=== PATIENT | female | born 2005 | race Asian ===

== ENCOUNTER 2024-06-18 10:38 | Inpatient (IN) | payer MEDICAID, SELFPAY ==
--- NOTE | ~2024-06-18 | CT_ITS ---
EXAMINATION: CT ABDOMEN PELVIS WITH IV CONTRAST CLINICAL INFORMATION: RLQ pain, R/O appendicitis COMPARISON: None. TECHNIQUE: IV contrast enhanced CT of the abdomen and pelvis. Intravenous Contrast: Omnipaque [address] examination was performed using dose optimization techniques as appropriate, variously including the following: *Automated exposure control *Adjustment of mA and/or kV according to patient size (this includes techniques or standardized protocols for targeted exams where dose is matched to indication/reason for exam; i.e. extremities or head) *Use of iterative reconstruction technique DLP: 472 mGy-cm FINDINGS: Lung bases clear. 5 mm nonspecific overwhelmingly likely benign rounded low-density focus within the dome of the liver. Incidental note made of a phrygian cap of the gallbladder. No biliary duct dilatation. Normal pancreas. Normal spleen. Normal adrenal glands. Normal appearance of the kidneys. No urolithiasis identified. No perinephric inflammatory changes. Bilaterally symmetric nephrographic enhancement. No ureterectasis or ureteral calculi visualized. Mild physiologic distention of the urinary bladder. Gastrointestinal system: The appendix measures 10 mm in outer wall diameter, above normal limits of size. Mild reticulation of the mesial appendix is visualized. Series 7 image 24). Mild mild reactive-appearing lymphadenopathy is noted in the right lower quadrant mesentery. No free intraperitoneal gas identified. Trace, physiologic free intraperitoneal fluid is present in the pelvic cul-de-sac. No abdominal wall hernias noted. Uterus is normal in appearance. No adnexal lesions identified. No suspicious osseous abnormalities noted. CT/CT abdomen pelvis w IV con Impression: *Findings suspicious for acute uncomplicated appendicitis. The appendix is abnormally enlarged measuring 10 mm in diameter. Mild periappendiceal inflammatory changes are visualized. No evidence of appendiceal perforation. This critical result (appendicitis) with Alli Menard MD MD by telephone at 06/18/2024 11:50 PM CDT and it was ascertained that the content and urgency of the report was understood at the time of direct communication. Electronically signed by: Sha Thompson MD 06/19/2024 12:51 AM EDT
--- NOTE | 2024-06-18 11:09 | ED.GENADULT ---
HPI - General Adult General Chief complaint: Abdominal Pain Stated complaint: Vomiting, abd pain Time Seen by Provider: 06/18/24 21:03 Source: patient and family (Mother) Mode of arrival: ambulatory Limitations: no limitations History of Present Illness ED Provider: Dr. Alli Menard HPI narrative: 18-year-old female with no significant past medical history who presents emergency department for evaluation of right lower quadrant abdominal pain. The patient states that the pain started around 04:00 hours. The patient can not describe the care to the pain but she states that it has been constant but waxes and wanes in intensity the 10 at its worse and currently 7/10. The patient had nausea and vomiting in his not been able to eat or drink since onset of the pain. She states she had subjective fever and chills. She denied cough, chest pain or shortness of breath. She denied diarrhea, bloody stools or dark stools. She states that her last menstrual period was 3 weeks ago. She states she had a similar episode of pain in January of 2023 but this resolved and she was not seen by a provider. Related Data Allergies Allergy/AdvReac Type Severity Reaction Status Date / Time No Known Allergies Allergy Verified 06/18/24 11:14 Review of Systems Review of Systems: Yes all other systems are reviewed and are negative [facility] Past Medical History [facility] Narrative: Social history: She was here in the emergency department with the mother. She denies tobacco, alcohol and drug use. Social History Social History Advance Directives: No Advance Directives Information Provided: No Physical Exam ED Vital Signs: Vital Signs - 24 hr 06/18/24 11:10 06/18/24 20:24 06/19/24 00:10 Temperature 97.5 F 98.3 F Pulse Rate 95 95 62 Respiratory Rate 16 17 16 Blood Pressure 109/61 105/57 L 101/48 L Pulse Oximetry 98 99 99 Oxygen Delivery Method Room Air Room Air Room Air 06/19/24 00:25 Temperature Pulse Rate 62 Respiratory Rate 16 Blood Pressure 92/54 L Pulse Oximetry Oxygen Delivery Method BMI result Body Mass Index 27.3 Vital signs were normal. Exam: General: Awake, alert in no distress Head: Normocephalic, atraumatic EENT: PERRL, Lids normal, sclera normal, conjunctiva normal, nose normal , ears normal, throat without erythema or exudates Neck: Supple, no adenopathy Lung: breath sounds symmetric, no wheezing, rales or rhonchi Chest: symmetric movement, nontender Heart: regular rate and rhythm, normal S1, S2 no murmurs or rubs Abdomen: soft, moderate, localized RLQ tenderness, mild LLQ tenderness, nondistended, normal bowel sounds Back: no vertebral tenderness, no CVAT Extremities: no deformities, moves all extremities symmetrically Neuro: Awake, alert, oriented, normal speech, cranial nerves intact, moves all extremities symmetrically Psych: Pleasant, cooperative Course Course Course Narrative: RME, this is a rapid medical exam performed by Kennedy Barriga please refer to primary provider for complete H&P- 18 year old female presents for evaluatoin of right lower abdominal pain. She is actively vomiting in triage. She reports that her symptoms started at 01:00 this morning. Denies any history of abdominal surgeries. Last menstrual cycle was 3-4 weeks agoi. Plan for labs, and UA. Will defer potential imaging at this time to primary provider Medications Administered Discontinued Medications Generic Name Dose Route Start Last Admin Trade Name Cooper PRN Reason Stop Dose Admin Lactated Ringer's 1,000 mls @ 999 mls/hr 06/18/24 21:25 06/18/24 22:59 Lr IV 06/18/24 22:25 Infused .Q1H1M STA Infusion Lactated Ringer's 1,000 mls @ 999 mls/hr 06/18/24 21:26 06/19/24 00:09 Lr IV 06/18/24 22:26 Infused .Q1H1M STA Infusion Piperacillin Sod/Tazobactam 100 mls @ 200 mls/hr 06/18/24 22:57 06/19/24 00:39 Sod 4.5 gm/ Sodium Chloride IV 06/18/24 23:26 Infused ONCE ONE Infusion Iohexol 85 ml 06/18/24 21:47 06/18/24 21:48 Iohexol 350 Mg/Ml 100 Ml Infus..Btl IV 06/18/24 21:48 85 ml ONCE ONE Administration Ketorolac Tromethamine 15 mg 06/18/24 21:18 06/18/24 21:35 Ketorolac Tromethamine 15 Mg/Ml Vial IVPUSH 06/18/24 21:19 15 mg ONCE STA Administration Ondansetron HCl 4 mg 06/18/24 11:11 06/18/24 11:15 Ondansetron Odt 4 Mg Tab.Rapdis TRANSLINGU 06/18/24 11:12 4 mg ONCE ONE Administration Ondansetron HCl 4 mg 06/18/24 21:18 06/18/24 21:35 Ondansetron Hcl 4 Mg/2 Ml Vial IVPUSH 06/18/24 21:19 4 mg ONCE ONE Administration Medical Decision Making Medical Decision Making [facility] Narrative: 18-year-old female who presents emergency department for evaluation of constant, right lower quadrant pain associated with nausea, vomiting, subjective fever and chills. Pain was 7/10 at the time my evaluation. Vital signs were normal. Exam did reveal moderate right lower quadrant tenderness and mild left lower quadrant tenderness with no rebound. Due to high patient volume, patient was been in the emergency department for proximally 11 hours prior to my evaluation. Differential diagnosis: ?Includes but is not limited to pancreatitis, appendicitis, diverticulitis, ovarian cyst, ovarian torsion, , electrolyte abnormalities, anemia Following evaluation was ordered: CBC, CMP, quantitative beta-hCG, lipase, urinalysis, COVID-19, influenza, RSV, CT scan of the abdomen pelvis with IV contrast Patient was initially treated with the following: IV insert, cardiac monitoring, O2 saturation monitoring, Toradol 15 mg IV, Zofran 4 mg IV, lactated Ringer's IV x2 L Course: 22:55 My interpretation patient's laboratory evaluation is as follows: WBC elevated 16,700 with 76 neutrophils and 18% bands. H&H was normal 13.6 and 40.4. CO2 low 21 otherwise CMP was normal. Quantitative beta-hCG was below detectable limits. Urinalysis revealed a concentrated urine and 1+ protein. Microscopic was unremarkable with no evidence for an infection. COVID-19, RSV and influenza were negative. CT scan of the abdomen pelvis was obtained but the reading is pending. Given the patient's elevated white blood cell count and bandemia, patient will be treated with Zosyn 4.5 g IV for possible intra-abdominal infectious/appendicitis. I will obtain lactic acid and blood cultures prior to administering antibiotics. 01:26 Lactic acid was normal at 1.3. Patient is feeling better and does not want any further pain medication, she was still has localized right lower quadrant tenderness. I did discuss the CT scan of the abdomen pelvis reading with the radiologist and the patient has acute, uncomplicated appendicitis. I did discuss the patient's presentation and findings over tiger text with the covering surgeon, Dr. Kaufman and the patient will be admitted to her service for further management of appendicitis. Admission/Observation Consideration of admission/observation: Escalation of care including admission/observation considered Consult Healthcare Provider Management of the patient was discussed with: Forest Examiner (Surgeon on-call, Dr. Kaufman's) Lab Data MDM Lab Attestation statement: I reviewed the patient's lab results. 06/18/24 20:33 06/18/24 20:33 Labs: Lab Results 06/18/24 06/18/24 06/18/24 Range/Units 12:03 20:33 23:15 WBC 16.7 H (4.8-10.8) X10*3/uL RBC 4.75 (4.20-5.50) X10*6/uL Hgb 13.6 (12.0-16.0) g/dl Hct 40.4 (37.0-47.0) % MCV 85.1 (80.0-98.0) fL MCH 28.6 (27.0-33.0) pg MCHC 33.7 (31.0-35.0) g/dl RDW 12.5 (11.0-16.0) % Plt Count 210 (160-400) X10*3/uL MPV 9.8 (9.4-12.3) fL Immature Gran % (Auto) Cancelled Neut % (Auto) Cancelled Lymph % (Auto) Cancelled [place] % (Auto) Cancelled Eos % (Auto) Cancelled Baso % (Auto) Cancelled Lymph # (Auto) Cancelled [place] # (Auto) Cancelled Eos # (Auto) Cancelled Baso # (Auto) Cancelled Abs Immat Gran (auto) Cancelled Absolute Neuts (auto) Cancelled Absolute Nucleated RBC 0.000 (0.0-0.012) X10*3/uL Nucleated RBC % (auto) 0.0 (0.0-0.2) /100WBC Neutrophils % (Manual) 76 H (45-73) % Band Neutrophils % 18 H (3-5) % Lymphocytes % (Manual) 4 L (20-40) % Monocytes % (Manual) 1 L (2-11) % Myelocytes % 1 % Abs Neuts (Manual) 15.7 H (2.0-8.3) X10*3/uL Lymphocytes # (Manual) 0.7 L (1.2-4.9) X10*3/uL Monocytes # (Manual) 0.2 (0.1-1.2) X10*3/uL Myelocytes # 0.2 X10*/uL Platelet Estimate NORMAL (NORMAL) Plt Morphology Comment NORMAL RBC Morphology NORMAL Smear Tech's Comments MANUAL DIFF Sodium 139 (135-145) mmol/L Potassium 3.6 (3.3-5.1) mmol/L Chloride 106 (96-108) mmol/L Carbon Dioxide 21 L (22-29) mmol/L Anion Gap 16 (12-20) BUN 15 (9-16) mg/dL Creatinine 0.69 (0.5-1.4) mg/dL Estim Creat Clear Calc 103.5 Estimated GFR > 60 Random Glucose 104 (60-115) mg/dL Lactic Acid 1.3 (0.5-2.0) mmol/L Calcium 9.7 (8.4-10.2) mg/dL Total Bilirubin 1.0 (0.0-1.0) mg/dL AST 19 (5-31) U/L ALT 16 (0-31) U/L Alkaline Phosphatase 52 (39-117) U/L Total Protein 8.0 (6.5-8.0) g/dL Albumin 4.5 (3.5-5.0) g/dL Lipase 41 (8-78) U/L Beta HCG, Quant < 2 mIU/mL Urine Color Yellow Urine Appearance Clear Urine pH 7.5 (5.0-9.0) Ur Specific [place] >= 1.030 H (1.005-1.025) Urine Protein 30 (1+) H (Neg-Trace) mg/dL Urine Glucose (UA) Negative (Negative) mg/dL Urine Ketones >=160 (Negative) mg/dL Urine Blood Negative (Negative) Urine Nitrite Negative (Negative) Ur Leukocyte Esterase Negative (Negative) Urine RBC 0-2 (0-2) /HPF Urine WBC 0-5 (0-5) /HPF Ur Squamous Epith Cells 0-2 (0-2) /HPF Urine Bacteria None Seen (None Seen) Hyaline Casts 0-2 (0-2) /LPF Influenza Type A (PCR) NEGATIVE (Negative) Influenza Type B (PCR) NEGATIVE (Negative) RSV RNA Qual (PCR) NEGATIVE (Negative) SARS-CoV-2 RNA (RT-PCR) NEGATIVE (Negative) Radiology Impression Discussion of test interpretation with radiology: I discussed test interpretation with the radiologist and I have reviewed the radiologist's reading. Radiologist Impression: CT abdomen pelvis w IV con Impression: *Findings suspicious for acute uncomplicated appendicitis. The appendix is abnormally enlarged measuring 10 mm in diameter. Mild periappendiceal inflammatory changes are visualized. No evidence of appendiceal perforation. This critical result (appendicitis) with Alli Menard MD MD by telephone at 06/18/2024 11:50 PM CDT and it was ascertained that the content and urgency of the report was understood at the time of direct communication. Dictated By: Sha Thompson MD Independent Historian Clinical information obtained from an independent historian. History obtained from or confirmed by: Parent Discharge Plan Discharge Clinical Impression: Acute appendicitis Print Language: Frisian
[2024-06-18 11:10] VITALS: BP 109/61; PULSE 95; RESP 16; TEMP 36.4; O2SAT 98; BMI 27.3
[2024-06-18] MEDS: Ondansetron ODT 4 MG TAB.RAPDIS TRANSLINGU (11:15)
[2024-06-18 12:51] LABS: Influenza A PCR NEGATIVE (Negative); Influenza B PCR NEGATIVE (Negative); Resp Syncy Virus RNA Qual PCR NEGATIVE (Negative); SARS COV2 PCR INHOUSE NEGATIVE (Negative)
[2024-06-18 20:24] VITALS: BP 105/57; PULSE 95; RESP 17; TEMP 36.8; O2SAT 99
[2024-06-18 20:43] LABS: Hematocrit 40.4 % (37.0-47.0); Hemoglobin 13.6 g/dl (12.0-16.0); Mean Corpuscular HGB Conc 33.7 g/dl (31.0-35.0); Mean Corpuscular Hemoglobin 28.6 pg (27.0-33.0); Mean Corpuscular Volume 85.1 fL (80.0-98.0); Mean Platelet Volume 9.8 fL (9.4-12.3); Platelet Count 210 X10*3/uL (160-400); Red Blood Count 4.75 X10*6/uL (4.20-5.50); Red Cell Distribution Width 12.5 % (11.0-16.0); White Blood Count 16.7 X10*3/uL (4.8-10.8)
[2024-06-18 20:50] LABS: Appearance Urine Clear; Color Urine Yellow; Glucose Urine UA Negative (Negative); Leukocyte Esterase Urine Negative (Negative); Nitrite Urine Negative (Negative); PH 7.5 (5.0-9.0); Specific Gravity - Urine >= 1.030 (1.005-1.025); UMIC TRIGGER UACC YES; Urine Blood Negative (Negative); Urine Ketones >=160 mg/dL (Negative); Urine Protein 30 (1+) mg/dL (Neg-Trace)
[2024-06-18 21:09] LABS: Alanine Aminotransferase 16 U/L (0-31); Albumin Level 4.5 g/dL (3.5-5.0); Alkaline Phosphatase 52 U/L (39-117); Anion Gap 16 (12-20); Aspartate Amino Transferase 19 U/L (5-31); Blood Urea Nitrogen 15 mg/dL (9-16); Calcium 9.7 mg/dL (8.4-10.2); Carbon Dioxide 21 mmol/L (22-29); Chloride 106 mmol/L (96-108); Creatinine Clr Calc Pharmacy 103.5; Estimated Glomerular Filt Rate > 60; Glucose Random 104 mg/dL (60-115); Lipase 41 U/L (8-78); Potassium 3.6 mmol/L (3.3-5.1); Sodium 139 mmol/L (135-145)
[2024-06-18 21:14] LABS: HCG Quantitative < 2 mIU/mL
[2024-06-18] MEDS: Lactated Ringers 1,000 ML 999 ML IV ×2 (21:35→22:57)
[2024-06-18] MEDS: Ketorolac Tromethamine 15 MG/ML VIAL IVPUSH (21:35)
[2024-06-18] MEDS: ondansetron HCL 4 MG/2 ML VIAL IVPUSH (21:35)
[2024-06-18] MEDS: iohexoL 350 MG/ML 100 ML INFUS..BTL 85 ML IV (21:48)
[2024-06-18 21:49] LABS: Bacteria Urine None Seen (None Seen); Hyaline Casts Urine 0-2 /LPF (0-2); Squamous Epithelial Cell Urine 0-2 /HPF (0-2); WBC Urine 0-5 /HPF (0-5)
[2024-06-18 21:53] LABS: RBC Urine 0-2 /HPF (0-2)
[2024-06-18 22:36] LABS: SLIDE REVIEW MANUAL DIFF
[2024-06-18 22:41] LABS: Neutrophils Percent Manual 76 % (45-73)
[2024-06-18 22:52] LABS: Band Neutrophils Percent 18 % (3-5); Lymphocytes Absolute Manual 0.7 X10*3/uL (1.2-4.9); Lymphocytes Percent Manual 4 % (20-40); Monocytes Absolute Manual 0.2 X10*3/uL (0.1-1.2); Monocytes Percent Manual 1 % (2-11); Myelocytes Absolute 0.2 X10*/uL; Myelocytes Percent 1 %; Neutrophils Absolute Manual 15.7 X10*3/uL (2.0-8.3)
[2024-06-18 22:53] LABS: Platelet Estimate NORMAL (NORMAL); Platelet Morphology Comment NORMAL; RBC Morphology NORMAL
[2024-06-18 23:37] LABS: Lactic Acid 1.3 mmol/L (0.5-2.0)
[2024-06-19] VITALS (11 sets, daily range): BP systolic 92–115; BP diastolic 47–61; PULSE 60–93; RESP 16–18; TEMP 36.1–36.7; O2SAT 96–100
--- NOTE | 2024-06-19 00:02 | PC.NURSE ---
pt is a very difficult stick. several attempts at obtaining a second set of cultures by multiple staff members. MD notified that only one set of cultures able to be obtained. he gave verbal order that it is OK to start antibiotics with only obtaining one set of cultures.
[2024-06-19] MEDS: Piperacillin Sodium/Tazobactam 4.5 GM in 0.9 % Sodium Chloride 100 ML IV (00:09)
[2024-06-19] MEDS: 0.9 % Sodium Chloride 1,000 ML 100 ML IVCONT (02:12)
--- NOTE | 2024-06-19 09:09 | PM.HPGS ---
History of Present Illness History of Present Illness Date of Service: 06/19/24 <Maria A Torres PA-C - Last Filed: 06/19/24 09:22> 06/19/24 <Varinder Florez MD - Last Filed: 06/19/24 09:20> Chief complaint: Abdominal Pain <Maria A Torres PA-C - Last Filed: 06/19/24 09:22> Narrative: Vega Kyle is a 18 year old female with no significant PMH who presented to the ED with complaints of acute onset RLQ abdominal pain. The pain began yesterday morning around 4 am and awoke her out of sleep. It was severe in nature and nonradiating. It was associated with nausea and multiple episodes of vomiting, fever of 102 and chills. She denies diarrhea. She denies a similar episode of pain. Due to the severity of pain, she presented to the ED for evaluation. Work up in the ED included CBC, BMP, LFTs which was significant for leukocytosis of 16.7. CT scan abd pelvis was obtained which showed thickened appendix with surrounding periappendiceal inflammatory changes. No free fluid. <Maria A Torres PA-C - Last Filed: 06/19/24 09:22> Review of Systems Constitutional: Constitutional: Reports chills and Reports fever(s) <Maria A Torres PA-C - Last Filed: 06/19/24 09:22> ENT: Denies dizziness <Maria A Torres PA-C - Last Filed: 06/19/24 09:22> Cardiovascular: Cardiovascular: Denies chest pain and Denies palpitations <Maria A Torres PA-C - Last Filed: 06/19/24 09:22> Respiratory: Respiratory: Denies cough <CRISTIN Cotres Last Filed: 06/19/24 09:22> Gastrointestinal: Gastrointestinal: Reports as per HPI, Denies hematochezia, Denies constipation and Denies hematemesis <CRISTIN Cortes Last Filed: 06/19/24 09:22> Genitourinary: Genitourinary: Denies dysuria <CRISTIN Cortes Last Filed: 06/19/24 09:22> Integumentary/Breasts: Skin/Breast: Denies rash <CRISTIN Cortes Last Filed: 06/19/24 09:22> Neurologic: Denies dizziness <CRISTIN Cortes Last Filed: 06/19/24 09:22> Endocrine: Endocrine: Denies palpitations <CRISTIN Cortes Last Filed: 06/19/24 09:22> [facility] Social History Social History: Social History Patient Tobacco Use Status: Never used Tobacco Smoked in Last 30 Days: No Use of substances other than those prescribed or required for medical reasons: No Advance Directives: No Advance Directives Information Provided: No Nutrition Risks: No Nutritional Risk <CRISTIN Cortes Last Filed: 06/19/24 09:22> Meds Allergies/Adverse reactions: Allergies Allergy/AdvReac Type Severity Reaction Status Date / Time No Known Allergies Allergy Verified 06/18/24 11:14 <CRISTIN Cortes Last Filed: 06/19/24 09:22> Active Medications: Current Medications Acetaminophen (Acetaminophen 325 Mg Tablet) 650 mg PO Q6H PRN PRN Reason: Pain, Mild (Pain Scale 1-3), fever or headache Sodium Chloride (Ns) 1,000 mls @ 100 mls/hr IVCONT .Q10H [facility] Last Admin: 06/19/24 02:12 Dose: 100 mls/hr Ketorolac Tromethamine (Ketorolac Tromethamine 15 Mg/Ml Vial) 15 mg IVPUSH Q6H PRN PRN Reason: Pain, Severe (Pain Scale 7-10) Stop: 06/24/24 01:47 Melatonin (Melatonin 3 Mg Tablet) 6 mg PO BEDTIME PRN PRN Reason: Insomnia Ondansetron HCl (Ondansetron Hcl 4 Mg/2 Ml Vial) 4 mg IVPUSH Q8H PRN PRN Reason: Nausea and Vomiting Sodium Chloride (0.9 % Sodium Chloride Flush 3 Ml Syringe) 3 ml IVFLUSH QSHIFT [facility] Last Admin: 06/19/24 08:31 Dose: Not Given <CRISTIN Cortes Last Filed: 06/19/24 09:22> Physical Exam Vital Signs: Vital Signs: Last Vital Signs Temp 98.0 F 06/19/24 05:45 Pulse 82 06/19/24 05:45 Resp 18 06/19/24 05:45 BP 107/52 L 06/19/24 05:45 Pulse Ox 98 06/19/24 05:45 O2 Del Method Room Air 06/19/24 05:45 BMI result Body Mass Index 27.3 <Maria A Torres PA-C Last Filed: 06/19/24 09:22> Const: General: no acute distress, alert and other (uncomfortable appearing ) <Maria A Torres PA-C [employer] Last Filed: 06/19/24 09:22> Orientation/consciousness: patient oriented x3 <Maria A Torres PA-C Last Filed: 06/19/24 09:22> Resp: Effort & Inspection: normal respiratory effort <Maria A Torres PA-C [employer] Last Filed: 06/19/24 09:22> Cardio: Rate: regular rate <Maria A Torres PA-C Last Filed: 06/19/24 09:22> GI: Inspection: Yes normal to inspection, No distended and No scar <Maria A Torres PA-C Last Filed: 06/19/24 09:22> Palpation (GI): Soft to palpation, Tenderness to palpation present (GI) in the RLQ (moderate) and at McBurney's point; with no rebound tenderness and Rovsing's sign negative, no guarding and not rigid <Maria A Torres PA-C Last Filed: 06/19/24 09:22> Skin: General skin exam: no rashes or lesions noted and no jaundice <Maria A Torres PA-C [employer] Last Filed: 06/19/24 09:22> Neuro: General: patient oriented x3 and moves all extremities <Maria A Torres PA-C Last Filed: 06/19/24 09:22> Results Results Labs: Short CBC 06/18/24 Range/Units 20:33 WBC 16.7 H (4.8-10.8) X10*3/uL Hgb 13.6 (12.0-16.0) g/dl Hct 40.4 (37.0-47.0) % Plt Count 210 (160-400) X10*3/uL BMP 06/18/24 20:33 Sodium 139 Potassium 3.6 Chloride 106 Carbon Dioxide 21 L BUN 15 Creatinine 0.69 Calcium 9.7 Liver Function 06/18/24 Range/Units 20:33 Total Bilirubin 1.0 (0.0-1.0) mg/dL AST 19 (5-31) U/L ALT 16 (0-31) U/L Alkaline Phosphatase 52 (39-117) U/L Albumin 4.5 (3.5-5.0) g/dL Urine 06/18/24 Range/Units 20:33 Urine Color Yellow Urine Appearance Clear Urine pH 7.5 (5.0-9.0) Ur Specific [place] >= 1.030 H (1.005-1.025) Urine Protein 30 (1+) H (Neg-Trace) mg/dL Urine Glucose (UA) Negative (Negative) mg/dL <CRISTIN Cortes Last Filed: 06/19/24 09:22> Abdomen CT scan report/results: report reviewed and image reviewed <CRISTIN Cortes Last Filed: 06/19/24 09:22> Assessment and Plan (1) Acute appendicitis: Status: Acute <CRISTIN Cortes Filed: 06/19/24 09:22> 18 year old female with no significant PMH who presented to the ED with complaints of acute onset RLQ abdominal pain with RLQ tenderness, leukocytosis and CT scan with thickened appendix consistent with acute appendicitis. The patient has been admitted to the surgical service for further treatment of the acute appendicitis. Treatment options were reviewed with the patient and it was recommended to proceed with laparoscopic possible open. Risks, benefits, alternatives of laparoscopic possible open appendectomy were reviewed with the patient and included but not limited to bleeding, infection, numbness, pain, scarring, bowel or bladder injury or staple line leak and the patient wishes to proceed. She was added onto the OR schedule for today. Cont NPO status, IVF, IV zosyn. Patient seen and examined. New onset of abdominal pain in the right lower quadrant waking the patient out of sleep. On examination the patient is tender in the right lower quadrant over McBurney's point. Laboratories revealed an elevated WBC and CT reveals a thickened appendix without perforation consistent with acute appendicitis. As noted above the procedure, risks, and alternatives of laparoscopic appendectomy were discussed including the possibility of requiring an open appendectomy. After discussion of the procedure, risks, and alternatives, she consents to a laparoscopic or possible open appendectomy. She has been added onto the operative schedule for today. <Maria A Torres PA-C - Last Filed: 06/19/24 09:22> 18 year old female with no significant PMH who presented to the ED with complaints of acute onset RLQ abdominal pain with RLQ tenderness, leukocytosis and CT scan with thickened appendix consistent with acute appendicitis. The patient has been admitted to the surgical service for further treatment of the acute appendicitis. Risks, benefits, alternatives of laparoscopic possible open appendectomy were reviewed with the patient and included but not limited to bleeding, infection, numbness, pain, scarring, bowel or bladder injury or staple line leak and the patient wishes to proceed. Patient seen and examined. New onset of abdominal pain in the right lower quadrant waking the patient out of sleep. On examination the patient is tender in the right lower quadrant over McBurney's point. Laboratories revealed an elevated WBC and CT reveals a thickened appendix without perforation consistent with acute appendicitis. As noted above the procedure, risks, and alternatives of laparoscopic appendectomy were discussed including the possibility of requiring an open appendectomy. After discussion of the procedure, risks, and alternatives, she consents to a laparoscopic or possible open appendectomy. She has been added onto the operative schedule for today. <Varinder Florez MD - Last Filed: 06/19/24 09:20> Quality Stroke Does the patient have a stroke diagnosis?: No <Maria A Torres PA-C - Last Filed: 06/19/24 09:22> No <Varinder Florez MD - Last Filed: 06/19/24 09:20> VTE Prior VTE?: No <Maria A Torres PA-C - Last Filed: 06/19/24 09:22> No <Varinder Florez MD - Last Filed: 06/19/24 09:20> VTE Risk Level:: Surgical - low <Maria A Torres PA-C - Last Filed: 06/19/24 09:22> VTE Device Contraindication: N/A - Device Ordered <Maria A Torres PA-C - Last Filed: 06/19/24 09:22> VTE Drug Contraindication: Treatment Not Indicated <Maria A Torres PA-C - Last Filed: 06/19/24 09:22> Procedures Date of Service Date of Service: 06/19/24 <Maria A Torres PA-C - Last Filed: 06/19/24 09:22> 06/19/24 <Varinder Florez MD - Last Filed: 06/19/24 09:20>
--- NOTE | 2024-06-19 09:25 | PHA.MEDREC ---
Addendum entered by Monserrat Le RPh 06/19/24 09:49: reviewed Original Note: Pharmacy Consult ? Medication Reconciliation Pharmacy has completed the medication reconciliation. Spoke to patient to confirm med list.
[2024-06-19] MEDS: Piperacillin Sodium/Tazobactam 3.375 GM in 0.9 % Sodium Chloride 50 ML IV (10:12)
--- NOTE | 2024-06-19 10:15 | PC.NURSE ---
Patient arrived to [facility] from ED with to PRN angios. #22 right FA, #20 left AC. Both sites asymptomatic, flushed with no issues.
--- NOTE | 2024-06-19 10:38 | P.CONAN_ITS ---
[facility] Active Problems Active Problems: All Active Problems (Updated 06/19/24 @ 09:53 by Mally Rosales, RN) Acute appendicitis (Acute) Past Medical History Medical History (Updated 06/19/24 @ 09:53 by Mally Rosales RN) No pertinent past medical history Family History Family history of problems with anesthesia: No Surgical History Surgical History (Updated 06/19/24 @ 09:53 by Mally Rosales, RN) History of dental surgery No pertinent past surgical history History of Problems with Anesthesia: No Social History Social History Are you a primary child care cook to a significant other at home: No Do you presently have visiting nurse or other home services: No Patient Tobacco Use Status: Never used Tobacco Meds Allergies Allergy/AdvReac Type Severity Reaction Status Date / Time No Known Allergies Allergy Verified 06/19/24 09:53 Active Medications: Current Medications Acetaminophen (Acetaminophen 325 Mg Tablet) 650 mg PO Q6H PRN PRN Reason: Pain, Mild (Pain Scale 1-3), fever or headache Sodium Chloride (Ns) 1,000 mls @ 100 mls/hr IVCONT .Q10H [facility] Last Infusion: 06/19/24 10:16 Dose: Infused Piperacillin Sod/Tazobactam (Sod 3.375 gm/ Sodium Chloride) 50 mls @ 100 mls/hr IV Q6H [facility] Last Admin: 06/19/24 10:12 Dose: 100 mls/hr Lactated Ringer's (Lr) 1,000 mls @ 50 mls/hr IVCONT .Q20H [facility] Ketorolac Tromethamine (Ketorolac Tromethamine 15 Mg/Ml Vial) 15 mg IVPUSH Q6H PRN PRN Reason: Pain, Severe (Pain Scale 7-10) Stop: 06/24/24 01:47 Melatonin (Melatonin 3 Mg Tablet) 6 mg PO BEDTIME PRN PRN Reason: Insomnia Morphine Sulfate (Morphine Sulfate 4 Mg/Ml Cartridge) 4 mg IVPUSH Q4H PRN; Protocol PRN Reason: Pain, Severe (Pain Scale 7-10) Ondansetron HCl (Ondansetron Hcl 4 Mg/2 Ml Vial) 4 mg IVPUSH Q8H PRN PRN Reason: Nausea and Vomiting Sodium Chloride (0.9 % Sodium Chloride Flush 3 Ml Syringe) 3 ml IVFLUSH QSHIFT [facility] Last Admin: 06/19/24 08:31 Dose: Not Given Home Medications ?Medication ?Instructions ?Recorded ?Confirmed ?Last Taken ?Type naproxen 500 mg tablet 500 mg PO BID PRN Pain 06/19/24 06/19/24 04/29/24 History Exam Height,Weight and Vital Signs: Height 4 ft 11 in Weight 61.3 kg Last Vital Signs Temp 97.8 F 06/19/24 09:54 Pulse 93 06/19/24 09:54 Resp 16 06/19/24 09:54 BP 115/60 06/19/24 09:54 Pulse Ox 100 06/19/24 09:54 O2 Del Method Room Air 06/19/24 09:54 Pertinent Lab Results Pertinent Lab Results: Laboratory Tests 06/18/24 06/18/24 06/18/24 12:03 20:33 23:15 WBC 16.7 H RBC 4.75 Hgb 13.6 Hct 40.4 MCV 85.1 MCH 28.6 MCHC 33.7 RDW 12.5 Plt Count 210 MPV 9.8 Immature Gran % (Auto) Cancelled Neut % (Auto) Cancelled Lymph % (Auto) Cancelled Letcher % (Auto) Cancelled Eos % (Auto) Cancelled Baso % (Auto) Cancelled Lymph # (Auto) Cancelled Letcher # (Auto) Cancelled Eos # (Auto) Cancelled Baso # (Auto) Cancelled Abs Immat Gran (auto) Cancelled Absolute Neuts (auto) Cancelled Absolute Nucleated RBC 0.000 Nucleated RBC % (auto) 0.0 Neutrophils % (Manual) 76 H Band Neutrophils % 18 H Lymphocytes % (Manual) 4 L Monocytes % (Manual) 1 L Myelocytes % 1 Abs Neuts (Manual) 15.7 H Lymphocytes # (Manual) 0.7 L Monocytes # (Manual) 0.2 Myelocytes # 0.2 Platelet Estimate NORMAL Plt Morphology Comment NORMAL RBC Morphology NORMAL Smear Tech's Comments MANUAL DIFF Sodium 139 Potassium 3.6 Chloride 106 Carbon Dioxide 21 L Anion Gap 16 BUN 15 Creatinine 0.69 Estim Creat Clear Calc 103.5 Estimated GFR > 60 Random Glucose 104 Lactic Acid 1.3 Calcium 9.7 Total Bilirubin 1.0 AST 19 ALT 16 Alkaline Phosphatase 52 Total Protein 8.0 Albumin 4.5 Lipase 41 Beta HCG, Quant < 2 Urine Color Yellow Urine Appearance Clear Urine pH 7.5 Ur Specific Presho >= 1.030 H Urine Protein 30 (1+) H Urine Glucose (UA) Negative Urine Ketones >=160 Urine Blood Negative Urine Nitrite Negative Ur Leukocyte Esterase Negative Urine RBC 0-2 Urine WBC 0-5 Ur Squamous Epith Cells 0-2 Urine Bacteria None Seen Hyaline Casts 0-2 Influenza Type A (PCR) NEGATIVE Influenza Type B (PCR) NEGATIVE RSV RNA Qual (PCR) NEGATIVE SARS-CoV-2 RNA (RT-PCR) NEGATIVE Airway Mallampati Class: II TM Dist: >3cm Neck ROM: Full Heart: rrr Lungs: cta Assessment and Plan Assessment Anesthesia Assessment: Anesthesia Plan Discussed and Chart Reviewed Final Anesthetic Review Family History of Problems with Anesthesia: No History of Problems with Anesthesia: No NPO: Yes ASA Class: I Final Preanesthetic Review: No Changes in Pt Med Stat, Meds/Allgs Chart Reviewed and Consent Obtained/Reviewed Patient Risk: Low Procedure Risk: Low Anesthetic Plan Anesthetic Plan: GA Disposition: Standard PACU
[2024-06-19] MEDS: Lactated Ringers 1,000 ML 50 ML IVCONT (10:40)
--- NOTE | 2024-06-19 11:44 | W.PM.OPN ---
Operative Note Operative Note Date of Service: 06/19/24 Narrative: Preoperative diagnosis: Acute appendicitis Postoperative diagnosis: Same Procedure: Laparoscopic appendectomy Surgeon: Varinder Florez MD [employer] Room Operator: Maria A Torres PA-C Anesthesia: General endotracheal Indications for procedure: 18-year-old female patient presenting with complaints of abdominal pain in the right lower quadrant found to have an elevated WBC and CT abdomen and pelvis which revealed a thickened appendix suggestive of acute appendicitis Operative findings: Inflamed appendix mildly distended. No evidence of perforation. Specimen: Appendix Estimated blood loss: Less than 2 mL Complications: None Procedure details: Patient was brought to the OR and placed in a supine position. After administering general anesthesia the patient's abdomen was prepped with ChloraPrep and draped in a sterile fashion. A surgical time-out was called and consent confirmed. Patient received preoperative antibiotics and Venodyne boots were in place. Local anesthesia consisting of 0.75% Sensorcaine with epinephrine was infiltrated in periumbilical region. A 5 mm incision was made below the umbilicus and carried down through subcutaneous tissue. A Veress needle was then inserted while elevating abdominal cavity with towel clips. After a positive drop test the abdomen was insufflated to a pressure of 15 mm of mercury. The Veress needle was removed and a 5 mm trocar inserted. The camera was then inserted in the abdomen explored. A 2nd 5 mm trocars placed in the lower midline. A 12 mm trocar was then placed in the left lower quadrant. The patient was then placed in a Trendelenburg position and rotated to the left. The appendix was identified in the right lower quadrant and brought up using blunt dissecting clamps. The mesentery of the appendix was then divided using the LigaSure. The appendiceal artery was cauterized and divided using the LigaSure. Dissection was continued down to the base of the cecum. An Endo-EILEEN stapler with a purple reload was then used to divide the appendix at the base with the cecum. The appendix was then placed in Endo-Catch bag and brought out through the left lower quadrant incision. The abdomen was then irrigated with saline solution and suctioned dry. Wounds were checked for hemostasis. CO2 was then evacuated from the abdominal cavity and all trocars removed. Fascia was closed in the left lower quadrant incision using a [id number] 0 Polysorb suture. Skin was closed at all incisions using a subcuticular 4-0 Polysorb suture. Steri-Strips 2 x 2 gauze and Tegaderm were then applied. The patient tolerated the procedure well. Sponge, instrument, needle counts reported as correct. The patient was transferred to PACU in stable condition.
[2024-06-19] MEDS: Ketorolac Tromethamine 15 MG/ML VIAL IVPUSH (12:35)
--- NOTE | 2024-06-19 12:45 | PM.DS ---
DS: Providers Provider Date of Service: 06/19/24 Date of admission: 06/19/24 01:49 Date of discharge: 06/19/24 Primary care physician: Savanna Physician Attending physician on admission: Varinder Florez Attending physician on discharge: Varinder Florez DS: Diagnosis Discharge Diagnosis (1) Acute appendicitis: Status: Acute DS: Summary Hospital Course Hospital Course: HPI AT ADMISSION: Vega Kyle is a 18 year old female with no significant PMH who presented to the ED with complaints of acute onset RLQ abdominal pain. The pain began yesterday morning around 4 am and awoke her out of sleep. It was severe in nature and nonradiating. It was associated with nausea and multiple episodes of vomiting, fever of 102 and chills. She denies diarrhea. She denies a similar episode of pain. Due to the severity of pain, she presented to the ED for evaluation. Work up in the ED included CBC, BMP, LFTs which was significant for leukocytosis of 16.7. CT scan abd pelvis was obtained which showed thickened appendix with surrounding periappendiceal inflammatory changes. No free fluid. HOSPITAL COURSE: The patient was admitted to the surgical service for further treatment of the acute appendicitis. She elected to proceed with laparoscopic appendectomy and was added onto the OR schedule for that day. On 06/19/24, a laparoscopic appendectomy was performed by Dr. Florez without complication. The patient tolerated the procedure well. She had an uncomplicated recovery course. She felt well in recovery with good pain control. She was hemodynamically stable. She was discharged to home on 06/19/24 in stable condition. She is to follow up in the office in 1 week. Status at Discharge Functional status at discharge: independent ambulation Overall status at discharge: patient is progressing back to baseline Time Attestation Discharge Coordination Time (in mins): 30 Quality: Safe Use of Opioids Does Pt have an Active Cancer Diagnosis on the Problem List?: No Quality: Stroke Does the patient have a stroke diagnosis?: No Physical Exam Vital Signs: Vital Signs: Last Vital Signs Temp 97 F 06/19/24 12:39 Pulse 78 06/19/24 12:39 Resp 16 06/19/24 12:39 BP 109/61 06/19/24 12:39 Pulse Ox 98 06/19/24 12:39 O2 Del Method Room Air 06/19/24 12:39 BMI result Body Mass Index 27.3 Const: General: comfortable, no acute distress and alert Orientation/consciousness: patient oriented x3 Resp: Effort & Inspection: normal respiratory effort GI: Inspection: Yes incision (dressings c/d/i) Palpation (GI): Soft to palpation Skin: General skin exam: no rashes or lesions noted Neuro: General: patient oriented x3 DS: Data Data Completed and Pending Pending studies at discharge: Pending at discharge 06/19/24 11:28 Surgical [PTH] Routine Labs on day of discharge: Preliminary micro results at discharge 06/18/24 23:15 Blood Culture - Preliminary Blood - Venous No growth after 24 hours. Discharge Plan Discharge Anticipated Discharge Date/Time: 06/19/24 16:51 Patient Disposition: Home, Self-Care Discharge Diagnosis: acute appendicitis Referrals: Varinder Florez MD [Physician] - 1 Week Physician,Savanna Rider [Primary Care Provider] - 1 Week Discharge Medications: New oxycodone 5 mg tablet 5 mg PO Q4H PRN (Reason: pain (scale score 7-10)) Qty: 24 0RF Rx Instructions: Partial Fill upon patient request. docusate sodium [Colace] 100 mg capsule 100 mg PO BID Qty: 30 0RF Continued naproxen 500 mg tablet 500 mg PO BID PRN (Reason: Pain) Discharge Orders: Discharge Order (Routine); Ordered 06/19/24 Ordered By: Varinder Florez Diet: Advance to usual diet Activity on Discharge: No heavy lifting Stand Alone Forms: Patient Portal Discharge page Print Language: Latvian Activity Restrictions/Additional Instructions: If the incision area is tender, you may apply an ice pack for short intervals (No more than 20 minutes on, followed by at least 20 minutes off). Do not apply heat. Do not use creams, lotions, or topical antibiotics. Ok to shower. Remove clear dressings 3 days following your procedure. You have steri strips (small white cloth strips) covering your incision- these will fall off ~1 week. No heavy lifting (>10lbs) or strenuous activity! Take Tylenol Extra-strength 1-2 tabs every 6 hours for the first day, then as needed. Oxycodone every 6-8 hours as needed for pain. Colace 100 mg every day as needed for constipation. Follow up in office with Dr. Florez in 1 week. ([phone]) Call Your Doctor If: -Your temperature exceeds 101.5? F -You experience excessive pain or swelling -You have an unexpected reaction to medication -You have excessive bleeding -You experience continued vomiting/nausea -Your incision begins to separate -Your incision shows signs of infection such as increased redness, swelling, excessive pain, drainage (light blood or clear fluid is normal) or heat Care Plan Goals: Return to baseline health and resume normal activities following recovery period. Health Concerns: acute appendicitis Plan of Treatment: s/p laparoscopic appendectomy Assessment: Doing well post op Patient Instructions: Laparoscopic Appendectomy (DC) Discharge Date/Time: 06/19/24 19:19
== END 2024-06-19 19:19 | disposition home or self-care (01) | DRG 234 ==
LOC: HO.ED 06-19 01:32 → HO.EDOVER 06-19 01:54
PROVIDERS: Physician Assistant; Surgery; Admitting Provider Surgery; Emergency Provider Emergency Medicine Emergency Medical Services; Visit Provider Surgery
PROC: 0DTJ4ZZ Resection of Appendix, Percutaneous Endoscopic Approach (ICD-10-PCS; CPT 44970; principal; 2024-06-19 11:00)
DX: K35.80 Unspecified acute appendicitis (principal); Z20.822 Contact with and (suspected) exposure to COVID-19
CPT/HCPCS: 44970; 0241U; 36415; 74177; 80053; 81001; 83605; 83690; 84702; 85007; 85025; 85027; 87040; 88304; 99285; J0330; J1885; J2250; J2405; J2543; J2704; J2795; J3010; J7120; Q9967

== ENCOUNTER → 2024-06-19 01:49 | Outpatient (BNV) | payer MEDICAID, SELFPAY | PROVIDERS: Admitting Provider Surgery; Emergency Provider Emergency Medicine Emergency Medical Services; Visit Provider Surgery | DX: K35.80 Unspecified acute appendicitis (principal) | CPT/HCPCS: 44970; 99222; 99238 ==

== ENCOUNTER 2024-06-27 09:42 | Outpatient (AMB) | payer MEDICAID, SELFPAY ==
--- NOTE | 2024-06-27 10:02 | MHC.OFFVIS ---
Vital Signs 06/27/24 10:10 Height 4 ft 9 in Weight 140 lb BMI 30.3 BP 110/70 Blood Pressure Location Lt brachial Position Sitting Intake Visit Reasons: s/p Appendectomy Laparoscopic Intake Note: Patient is seen in office for post op assessment post laparoscopic appendectomy. Pt c/o: admits to minimal pain when having a bowel for the 1st three days after surgery Early Childhood Associate Required: No Accompanied by: Family/Other Allergies No Known Allergies Allergy (Verified 06/27/24 10:12) Medication List - Last Reconciled 06/28/24 by Varinder Florez MD docusate sodium (Colace) 100 mg PO BID naproxen 500 mg PO BID PRN HPI Comments Details: 18-year-old female patient returning 1 week following laparoscopic appendectomy for acute appendicitis. She reports tolerating the procedure well and feels improved today. She does have some discomfort in the left lower quadrant at the incision but generally this is improving. She denies nausea, vomiting, fever or chills. [facility] Surgical History History of laparoscopic appendectomy (06/19/24) History of dental surgery Social History Are you a primary critical care specialist to a significant other at home: No Do you presently have visiting nurse or other home services: No Patient Tobacco Use Status: Never used Tobacco Physical Exam Vital Signs: Last Vital Signs BP 110/70 06/27/24 10:10 BMI result Body Mass Index 30.3 Const General: no acute distress Nutritional Appearance: well nourished Orientation/consciousness: patient oriented x3 Resp Effort & Inspection: normal respiratory effort GI Other: Trocar incisions are clean, dry, and intact. No redness or discharge. No hernia noted. Neuro General: patient oriented x3 Extrem General: No edema Assessment & Plan Assessment & Plan (1) Acute appendicitis: Code(s): K35.80 - Unspecified acute appendicitis Category: Medical Qualifiers: Acute appendicitis type: with localized peritonitis Appendicitis gangrene presence: without gangrene Appendicitis perforation presence: without perforation Appendicitis abscess presence: without abscess Qualified Code(s): K35.30 - Acute appendicitis with localized peritonitis, without perforation or gangrene Plan 18-year-old female patient returning 1 week following laparoscopic appendectomy for acute appendicitis. Her wounds are clean and intact without evidence of infection. She should continue to avoid lifting greater than 10 lb for 1 more week after which she may return to normal activity. She should follow up as needed. Medications: Discontinued oxycodone Partial Fill upon patient request. Discontinued Reason: Patient Completed Course 5 mg PO Q4H PRN 24 tabs 0RF pain (scale score 7-10) Coding Level of Care Code Global (43856) Diagnoses Acute appendicitis with localized peritonitis, without perforation, abscess, or gangrene K35.30 Acute appendicitis type: with localized peritonitis Appendicitis gangrene presence: without gangrene Appendicitis perforation presence: without perforation Appendicitis abscess presence: without abscess
[2024-06-27 10:10] VITALS: BP 110/70; BMI 30.3
== END 2024-06-27 10:14 | disposition home or self-care (01) ==
PROVIDERS: Visit Provider Surgery
DX: K35.30 Acute appendicitis with localized peritonitis, without perforation or gangrene (principal)
CPT/HCPCS: 99024

== ENCOUNTER → 2024-06-27 09:42 | Outpatient (BNVA) | payer MEDICAID, SELFPAY | PROVIDERS: Visit Provider Surgery | DX: K35.30 Acute appendicitis with localized peritonitis, without perforation or gangrene (principal) | CPT/HCPCS: 99212 ==